=== PATIENT | female | born 1990 | race Caucasian/White ===

== ENCOUNTER 2017-04-16 14:28 | Emergency (ER) | payer SELFPAY ==
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
--- NOTE | 2017-04-16 15:12 | CR ---
EXAMINATION: Left ankle HISTORY: Pain COMPARISON: None TECHNIQUE: 3 views FINDINGS/IMPRESSION: There is an oblique minimally displaced distal fibular fracture noted. Ankle mor tise and talar dome appear grossly intact. Bone mineralization is otherwise normal.
[2017-04-16 16:38] VITALS: BP 133/99
== END 2017-04-16 15:58 | disposition home or self-care (01) ==
LOC: MW.ED 14:28
DX: S82.832A Other fracture of upper and lower end of left fibula, initial encounter for closed fracture (principal); W10.1XXA Fall (on)(from) sidewalk curb, initial encounter
CPT/HCPCS: 29515; 73610-26-LT; 73610-LT; 99282; 99283

== ENCOUNTER 2020-06-06 05:32 | Inpatient (IN) | payer MEDICAID ==
[2020-06-06] MEDS ORDERED: Terbutaline 1 MG/ML SDV SUBCUT PRN (06:36)
[2020-06-06] MEDS ORDERED: Sodium Chloride 0.9% 10 ML SDV IV PRN (06:36)
[2020-06-06] MEDS ORDERED: Butorphanol 1 MG/ML SDV IVPUSH PRN (06:36)
[2020-06-06] MEDS ORDERED: Carboprost Tromethamine 250 MCG/1 ML Amp IM PRN (06:36)
[2020-06-06] MEDS ORDERED: Nalbuphine 10 MG/1 ML Vial IVPUSH PRN (06:36)
[2020-06-06] MEDS ORDERED: Sodium Chloride 0.9% 10 ML Syringe FLUSH PRN (06:36)
[2020-06-06] MEDS ORDERED: Tranexamic Acid 1,000 MG in Sodium Chloride 0.9% 100 ML IV PRN (06:36)
[2020-06-06] MEDS ORDERED: Water For Irrigation,Sterile 1,000 ML Container IRR PRN (06:36)
[2020-06-06] MEDS ORDERED: Methylergonovine 0.2 MG/1 ML Amp IM PRN (06:36)
[2020-06-06] MEDS ORDERED: Misoprostol 25 MCG (1/4 of 100 MCG) Tab VAG PRN ×2 (06:36)
[2020-06-06] MEDS ORDERED: Lidocaine 1% 50 ML MDV INJECT PRN (06:36)
[2020-06-06] MEDS ORDERED: Sodium Chloride 0.9% 2.5 ML Syringe FLUSH PRN (06:36)
[2020-06-06] MEDS ORDERED: Misoprostol 200 MCG Tab PO PRN (06:36)
[2020-06-06] MEDS ORDERED: Oxytocin/0.9 % Sodium Chloride 30 UNIT/500 ML BAG IV SCH ×2 (06:45)
[2020-06-06 08:31] LABS: BLOOD UREA NITROGEN,BUN 9 mg/dL (7.0-18.0); CARBON DIOXIDE,CO2 18.1 mmol/L (21.0-32.0); CHLORIDE,CL 104 mmol/L (98-107); GLUCOSE RANDOM 122 mg/dL (74-106); POTASSIUM,K 3.7 mmol/L (3.5-5.1); SODIUM,NA 137 mmol/L (136-145)
[2020-06-06] MEDS: Lactated Ringers 1,000 ML IV SCH ×2 (13:18→16:50)
--- NOTE | 2020-06-06 16:34 | PCM.PREANE ---
Preanesthetic Assessment - Anesthesia/Transfusion/Family Hx Anesthesia History: Prior Anesthesia Without Reaction Family History of Anesthesia Reaction: No Intubation History: Unknown - Review of Systems General: No Symptoms Pulmonary: No Symptoms Cardiovascular: Other (Hypertension) Gastrointestinal: No Symptoms Neurological: No Symptoms Other: Reports: None - Physical Assessment NPO Status Date: 06/06/20 NPO Status Time: 16:31 (Clear liquids) Height: 1.7 m Weight: 82.1 kg ASA Class: 2 Mental Status: Alert & Oriented x3 Airway Class: Mallampati = 1 Dentition: Reports: Normal Dentition ROM/Head Extension: Full Lungs: Clear to Auscultation Cardiovascular: Regular Rate - Lab Values: Laboratory Last Values WBC 8.06 K/uL (4.0-11.0) 06/06/20 05:55 RBC 3.59 M/uL (4.30-5.90) L 06/06/20 05:55 Hgb 10.9 g/dL (12.0-16.0) L 06/06/20 05:55 Hct 33.1 % (36.0-46.0) L 06/06/20 05:55 MCV 92.2 fL (80.0-98.0) 06/06/20 05:55 MCH 30.4 pg (27.0-32.0) 06/06/20 05:55 MCHC 32.9 g/dL (31.0-37.0) 06/06/20 05:55 RDW Std Deviation 45.7 fl (28.0-62.0) 06/06/20 05:55 RDW Coeff of Wally 14 % (11.0-15.0) 06/06/20 05:55 Plt Count 160 K/uL (150-400) 06/06/20 05:55 MPV 13.80 fL (7.40-12.00) H 06/06/20 05:55 Nucleated RBC % 0.0 /100WBC 06/06/20 05:55 Nucleated RBCs # 0 K/uL 06/06/20 05:55 Sodium 137 mmol/L (136-145) 06/06/20 05:55 Potassium 3.7 mmol/L (3.5-5.1) 06/06/20 05:55 Chloride 104 mmol/L (98-107) 06/06/20 05:55 Carbon Dioxide 18.1 mmol/L (21.0-32.0) L 06/06/20 05:55 BUN 9 mg/dL (7.0-18.0) 06/06/20 05:55 Creatinine 0.7 mg/dL (0.6-1.0) 06/06/20 05:55 Est Cr Clr Drug Dosing 114.28 mL/min 06/06/20 05:55 Estimated GFR (MDRD) > 60.0 ml/min 06/06/20 05:55 Glucose 122 mg/dL (74-106) H 06/06/20 05:55 Uric Acid 4.3 mg/dL (2.6-7.2) 06/06/20 05:55 Calcium 8.3 mg/dL (8.5-10.1) L 06/06/20 05:55 Total Bilirubin 0.6 mg/dL (0.2-1.0) 06/06/20 05:55 AST 15 IU/L (15-37) 06/06/20 05:55 ALT 11 IU/L (14-63) L 06/06/20 05:55 Alkaline Phosphatase 188 U/L (46-116) H 06/06/20 05:55 Total Protein 5.4 g/dL (6.4-8.2) L 06/06/20 05:55 Albumin 2.3 g/dL (3.4-5.0) L 06/06/20 05:55 Globulin 3.1 g/dL (2.6-4.0) 06/06/20 05:55 Albumin/Globulin Ratio 0.7 (0.9-1.6) L 06/06/20 05:55 Ur Random Creatinine 191.5 mg/dL 06/06/20 07:55 U Random Total Protein 99.2 mg/dL (<11.9) H 06/06/20 07:55 Protein/Creatinin Ratio 0.5 06/06/20 07:55 SARS-CoV-2 RNA (CORNELIO) NEGATIVE (NEGATIVE) 06/06/20 06:27 Blood Type A POSITIVE 06/06/20 05:55 Antibody Screen NEGATIVE 06/06/20 05:55 - Allergies Allergies/Adverse Reactions: Allergies Allergy/AdvReac Type Severity Reaction Status Date / Time No Known Allergies Allergy Verified 04/16/17 14:47 - Blood Blood Available: No Product(s) Available: None - Anesthesia Plan Free Text/Narrative:: twins. Progressing well. 5cm. Pain /. Hypertension not treated with meds. Discussed, ? answered, permit signed, wishes to proceed. 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 [No Known Home Meds] 04/16/17 [History] - CURRENT (IN HOUSE) MEDS Current Meds: Current Medications Butorphanol Tartrate (Stadol) 1 mg IVPUSH Q1H PRN PRN Reason: Pain Carboprost Tromethamine (Hemabate Ds) 250 mcg IM ASDIRECTED PRN PRN Reason: Post Hemorrhage Oxytocin/Sodium Chloride (Oxytocin 30 Unit/500 Ml-Ns) 30 unit in 500 mls @ 500 mls/hr IV TITRATE SUSHIL Tranexamic Acid 1,000 mg/ (Sodium Chloride) 110 mls @ 660 mls/hr IV ONETIME PRN PRN Reason: Bleeding Oxytocin/Sodium Chloride (Oxytocin 30 Unit/500 Ml-Ns) 30 unit in 500 mls @ 2 mls/hr IV TITRATE SUSHIL; Protocol Last Titration: 06/06/20 16:15 Dose: 8 munits/min, 8 mls/hr Documented by: Lactated Ringer's (Ringers, Lactated) 1,000 mls @ 150 mls/hr IV ASDIRECTED SUSHIL Last Admin: 06/06/20 13:18 Dose: 50 mls/hr Documented by: Lidocaine HCl (Xylocaine 1%) 50 ml INJECT ONETIME PRN PRN Reason: Laceration repair Methylergonovine Maleate (Methergine) 0.2 mg IM ASDIRECTED PRN PRN Reason: Post Hemorrhage Misoprostol (Cytotec) 200 mcg PO ONETIME PRN PRN Reason: Post Hemorrhage Misoprostol (Cytotec) 25 mcg VAG ONETIME PRN PRN Reason: Cervical Ripening Last Admin: 06/06/20 08:38 Dose: 25 mcg Documented by: Misoprostol (Cytotec) 25 mcg VAG Q4H PRN PRN Reason: Cervical Ripening Nalbuphine HCl (Nubain) 10 mg IVPUSH Q1H PRN PRN Reason: Pain (severe 7-10) Sodium Chloride (Saline Flush) 10 ml FLUSH ASDIRECTED PRN PRN Reason: Keep Vein Open Sodium Chloride (Saline Flush) 2.5 ml FLUSH ASDIRECTED PRN PRN Reason: Keep Vein Open Sodium Chloride (Normal Saline) 10 ml IV ASDIRECTED PRN PRN Reason: IV Use Sterile Water (Sterile Water For Irrigation) 1,000 ml IRR ASDIRECTED PRN PRN Reason: delivery Terbutaline Sulfate (Brethine) 0.25 mg SUBCUT ASDIRECTED PRN PRN Reason: Tacysystole
[2020-06-06] MEDS ORDERED: fentaNYL 100 MCG/2 ML SDV ONE ×2 (16:36→20:08)
[2020-06-06] MEDS ORDERED: Ropivacaine 0.2% PF 2 MG/ML 20 ML SDV ONE (16:36)
[2020-06-06] MEDS ORDERED: Ropivacaine HCl/PF 100 ML ONE (16:36)
[2020-06-06] MEDS ORDERED: ePHEDrine 50 MG/ML SDV ONE (17:05)
[2020-06-06] MEDS ORDERED: Sodium Chloride 0.9% 20 ML ONE (17:05)
[2020-06-06] MEDS ORDERED: Bupivacaine 0.5% 30 ML SDV ONE (20:03)
[2020-06-06] MEDS ORDERED: Misoprostol 200 MCG Tab ONE (22:05)
[2020-06-06] MEDS ORDERED: Benzocaine/Menthol 20%-0.5% Spray 78 GM Cannister TOP PRN (22:41)
[2020-06-06] MEDS ORDERED: oxyCODONE 5 MG Tab PO PRN (22:41)
[2020-06-06] MEDS ORDERED: Ibuprofen 800 MG Tab PO PRN (22:41)
[2020-06-06] MEDS ORDERED: Witch Hazel Medicated Pads 40/Jar TOP PRN (22:41)
[2020-06-06] MEDS ORDERED: Bisacodyl 10 MG Supp RECTAL PRN (22:41)
[2020-06-06] MEDS ORDERED: Lanolin 100% Cream 7 GM Tube TOP PRN (22:41)
--- NOTE | 2020-06-06 22:59 | PCM.DEL ---
L & D Note - General Info Date of Service: 06/06/20 Mother's Due Date: 06/30/20 - Delivery Note Labor: Induced by Oxytocin Cervical Ripening Method: Misoprostil Delivery Outcome: Livebirth Infant Delivery Method: Spontaneous Vaginal Delivery-Twins Presentation: Vertex Nuchal Cord: Reduced (A- nuchal cord x1, reduced after delivery of baby) Anesthesia Type: Epidural Amniotic Fluid Description: Clear (x2) Episiotomy Type: None Laceration: Periurethral (right, hemostatic without repair), Vaginal (left) Suture type: Vicryl Suture size: 2-0 Placenta: Intact, Spontaneous Cord: 3 Vessels (x2) Estimated Blood Loss: 900 (received 1000mcg misoprostol per rectum for lower uterine segment atony) Resuscitation Needed: Yes : Suctioned, Bulb Syringe, Stimulated, Warmed, [place] Used, Warmer Used Score 1 min: 7 (A 7, B 7) Score 5 min: 8 (A 8, B 8) Delivery Comments (Free Text/Narrative):: Induction of labor for suspected monochorionic/diamniotic twin gestation at 37w4d. Blood pressure noted to be elevated, labs with urine protein:Cr 0.5, otherwise normal. Received 1 dose of cytotec and Cook bradley placed for cervical ripening. Started on pitocin. AROM clear fluid of twin A at 5cm dilated. Received epidural for pain control. Progressed to complete cervical dilation. Taken to OR for delivery. Patient began pushing and delivered twin A, live female, Apgars 7/8, weight 2810g, nuchal x1 reduced after delivery of body, delayed cord clamping 30 seconds before being taken to warmer for evaluation. Pelvic examination occurred with simultaneous abdominal US. Head in left lower quadrant, feet in right lower quadrant. With abdominal pressure on head by Dr. Hallman, and intrauterine pressure on feet by myself, converted to vertex presentation. Patient pushed and head became engaged. AROM clear fluid of twin B. Continued pushing and delivered twin B, live female, Apgars 7/8, weight pending, delayed cord clamping 60 seconds. Placenta delivered intact and with 3- vessel cord for each infant. Examination of placenta showed 4 layers to membranes, confirming dichorionic/diamniotic. Lower uterine segment atony with evacuation of clot. 1000mcg misoprostol placed per rectum. Perineal exam revealed right periurethral laceration hemostatic without repair and left vaginal laceration, repaired with 2-0 Vicryl. Fundus firm with minimal bleeding. - General Info Date of Service: 06/06/20 - Patient Data Weight - Most Recent: 82.1 kg Lab Results Last 24 Hours: Laboratory Results - last 24 hr 06/06/20 06/06/20 06/06/20 Range/Units 05:55 05:55 05:55 WBC 8.06 (4.0-11.0) K/uL RBC 3.59 L (4.30-5.90) M/uL Hgb 10.9 L (12.0-16.0) g/dL Hct 33.1 L (36.0-46.0) % MCV 92.2 (80.0-98.0) fL MCH 30.4 (27.0-32.0) pg MCHC 32.9 (31.0-37.0) g/dL RDW Std Deviation 45.7 (28.0-62.0) fl RDW Coeff of Wally 14 (11.0-15.0) % Plt Count 160 (150-400) K/uL MPV 13.80 H (7.40-12.00) fL Nucleated RBC % 0.0 /100WBC Nucleated RBCs # 0 K/uL Sodium 137 (136-145) mmol/L Potassium 3.7 (3.5-5.1) mmol/L Chloride 104 (98-107) mmol/L Carbon Dioxide 18.1 L (21.0-32.0) mmol/L BUN 9 (7.0-18.0) mg/dL Creatinine 0.7 (0.6-1.0) mg/dL Est Cr Clr Drug Dosing 114.28 mL/min Estimated GFR (MDRD) > 60.0 ml/min Glucose 122 H (74-106) mg/dL Uric Acid 4.3 (2.6-7.2) mg/dL Calcium 8.3 L (8.5-10.1) mg/dL Total Bilirubin 0.6 (0.2-1.0) mg/dL AST 15 (15-37) IU/L ALT 11 L (14-63) IU/L Alkaline Phosphatase 188 H (46-116) U/L Total Protein 5.4 L (6.4-8.2) g/dL Albumin 2.3 L (3.4-5.0) g/dL Globulin 3.1 (2.6-4.0) g/dL Albumin/Globulin Ratio 0.7 L (0.9-1.6) Ur Random Creatinine mg/dL U Random Total Protein (<11.9) mg/dL Protein/Creatinin Ratio SARS-CoV-2 RNA (CORNELIO) (NEGATIVE) Blood Type A POSITIVE Antibody Screen NEGATIVE 06/06/20 06/06/20 Range/Units 06:27 07:55 WBC (4.0-11.0) K/uL RBC (4.30-5.90) M/uL Hgb (12.0-16.0) g/dL Hct (36.0-46.0) % MCV (80.0-98.0) fL MCH (27.0-32.0) pg MCHC (31.0-37.0) g/dL RDW Std Deviation (28.0-62.0) fl RDW Coeff of Wally (11.0-15.0) % Plt Count (150-400) K/uL MPV (7.40-12.00) fL Nucleated RBC % /100WBC Nucleated RBCs # K/uL Sodium (136-145) mmol/L Potassium (3.5-5.1) mmol/L Chloride (98-107) mmol/L Carbon Dioxide (21.0-32.0) mmol/L BUN (7.0-18.0) mg/dL Creatinine (0.6-1.0) mg/dL Est Cr Clr Drug Dosing mL/min Estimated GFR (MDRD) ml/min Glucose (74-106) mg/dL Uric Acid (2.6-7.2) mg/dL Calcium (8.5-10.1) mg/dL Total Bilirubin (0.2-1.0) mg/dL AST (15-37) IU/L ALT (14-63) IU/L Alkaline Phosphatase (46-116) U/L Total Protein (6.4-8.2) g/dL Albumin (3.4-5.0) g/dL Globulin (2.6-4.0) g/dL Albumin/Globulin Ratio (0.9-1.6) Ur Random Creatinine 191.5 mg/dL U Random Total Protein 99.2 H (<11.9) mg/dL Protein/Creatinin Ratio 0.5 SARS-CoV-2 RNA (CORNELIO) NEGATIVE (NEGATIVE) Blood Type Antibody Screen Med Orders - Current: Current Medications Acetaminophen (Tylenol Extra Strength) 1,000 mg PO Q6H PRN PRN Reason: Pain Benzocaine/Menthol (Dermoplast Pain Relief 20%-0.5% [place]) 78 gm TOP ASDIRECTED PRN PRN Reason: Perineal Comfort Measure Bisacodyl (Dulcolax) 10 mg RECTAL ONETIME PRN PRN Reason: Constipation Butorphanol Tartrate (Stadol) 1 mg IVPUSH Q1H PRN PRN Reason: Pain Carboprost Tromethamine (Hemabate Ds) 250 mcg IM ASDIRECTED PRN PRN Reason: Post Hemorrhage Docusate Sodium (Colace) 100 mg PO BID PRN PRN Reason: Constipation Emollient Ointment (Lansinoh Hpa) 0 gm TOP ASDIRECTED PRN PRN Reason: Sore Nipples Oxytocin/Sodium Chloride (Oxytocin 30 Unit/500 Ml-Ns) 30 unit in 500 mls @ 500 mls/hr IV TITRATE SUSHIL Tranexamic Acid 1,000 mg/ (Sodium Chloride) 110 mls @ 660 mls/hr IV ONETIME PRN PRN Reason: Bleeding Oxytocin/Sodium Chloride (Oxytocin 30 Unit/500 Ml-Ns) 30 unit in 500 mls @ 2 mls/hr IV TITRATE SUSHIL; Protocol Last Titration: 06/06/20 19:15 Dose: 0 munits/min, 0 mls/hr Documented by: Lactated Ringer's (Ringers, Lactated) 1,000 mls @ 150 mls/hr IV ASDIRECTED SUSHIL Last Admin: 06/06/20 16:50 Dose: 999 mls/hr Documented by: Ibuprofen (Motrin) 800 mg PO Q8H PRN PRN Reason: Pain Lidocaine HCl (Xylocaine 1%) 50 ml INJECT ONETIME PRN PRN Reason: Laceration repair Methylergonovine Maleate (Methergine) 0.2 mg IM ASDIRECTED PRN PRN Reason: Post Hemorrhage Misoprostol (Cytotec) 200 mcg PO ONETIME PRN PRN Reason: Post Hemorrhage Misoprostol (Cytotec) 25 mcg VAG ONETIME PRN PRN Reason: Cervical Ripening Last Admin: 06/06/20 08:38 Dose: 25 mcg Documented by: Misoprostol (Cytotec) 25 mcg VAG Q4H PRN PRN Reason: Cervical Ripening Nalbuphine HCl (Nubain) 10 mg IVPUSH Q1H PRN PRN Reason: Pain (severe 7-10) Oxycodone HCl (Oxycodone) 5 mg PO Q2H PRN PRN Reason: Pain Sodium Chloride (Saline Flush) 10 ml FLUSH ASDIRECTED PRN PRN Reason: Keep Vein Open Sodium Chloride (Saline Flush) 2.5 ml FLUSH ASDIRECTED PRN PRN Reason: Keep Vein Open Sodium Chloride (Normal Saline) 10 ml IV ASDIRECTED PRN PRN Reason: IV Use Sterile Water (Sterile Water For Irrigation) 1,000 ml IRR ASDIRECTED PRN PRN Reason: delivery Terbutaline Sulfate (Brethine) 0.25 mg SUBCUT ASDIRECTED PRN PRN Reason: Tacysystole Witch Edie (Tucks) 1 pad TOP ASDIRECTED PRN PRN Reason: comfort care Discontinued Medications Bupivacaine HCl (Marcaine 0.5%) Confirm Administered Dose 30 ml .ROUTE .STK-MED ONE Stop: 06/06/20 20:04 Ephedrine Sulfate (Ephedrine Sulfate) Confirm Administered Dose 100 mg .ROUTE .STK-MED ONE Stop: 06/06/20 17:06 Fentanyl (Sublimaze) Confirm Administered Dose 100 mcg .ROUTE .STK-MED ONE Stop: 06/06/20 16:37 Fentanyl (Sublimaze) Confirm Administered Dose 100 mcg .ROUTE .STK-MED ONE Stop: 06/06/20 20:09 Ropivacaine (Naropin 0.2%) Confirm Administered Dose 100 mls @ as directed .ROUTE .STK-MED ONE Stop: 06/06/20 16:37 Sodium Chloride (Normal Saline) Confirm Administered Dose 20 mls @ as directed .ROUTE .STK-MED ONE Stop: 06/06/20 17:06 Misoprostol (Cytotec) Confirm Administered Dose 800 mcg .ROUTE .STK-MED ONE Stop: 06/06/20 22:06 Ropivacaine (Naropin 0.2%) Confirm Administered Dose 20 ml .ROUTE .STK-MED ONE Stop: 06/06/20 16:37 - Problem List & Annotations (1) Twin delivered vaginally SNOMED Code(s): 656749930 Code(s): O30.009 - TWIN , UNSP NUM PLCNTA & AMNIO SACS, UNSP TRIMESTER Status: Acute Current Visit: Yes (2) Preeclampsia SNOMED Code(s): 156206433 Code(s): O14.90 - UNSPECIFIED PRE-ECLAMPSIA, UNSPECIFIED TRIMESTER Status: Acute Current Visit: Yes Qualifiers: Trimester: third trimester Qualified Code(s): O14.93 - Unspecified pre- eclampsia, third trimester - Problem List Review Problem List Initiated/Reviewed/Updated: Yes - My Orders Last 24 Hours: My Active Orders 06/06/20 05:55 RPR (SYPHILIS SERO) W/ RFLX [REF] Routine 06/06/20 06:36 Patient Status [ADT] Routine Bedrest Bathroom Privileges [RC] ASDIRECTED Communication Order [RC] ASDIRECTED Communication Order [RC] ASDIRECTED Communication Order [RC] ASDIRECTED Heart Tones [RC] CONTINUOUS Non Stress Test [RC] PER UNIT ROUTINE May Shower [RC] ASDIRECTED Notify Provider [RC] PRN Notify Provider [RC] PRN Notify Provider [RC] PRN Notify Provider [RC] STAT Oxygen Therapy [RC] ASDIRECTED Up ad Gabriela [RC] ASDIRECTED Vaginal Exam [RC] PRN Vaginal Exam [RC] PRN Vital Signs [RC] PER UNIT ROUTINE Butorphanol [Stadol] 1 mg IVPUSH Q1H PRN Carboprost Tromethamine [Hemabate DS] 250 mcg IM ASDIRECTED PRN Lidocaine 1% [Xylocaine 1%] 50 ml INJECT ONETIME PRN Methylergonovine [Methergine] 0.2 mg IM ASDIRECTED PRN Nalbuphine [Nubain] 10 mg IVPUSH Q1H PRN Sodium Chloride 0.9% [Normal Saline] 10 ml IV ASDIRECTED PRN Sodium Chloride 0.9% [Saline Flush] 10 ml FLUSH ASDIRECTED PRN Sodium Chloride 0.9% [Saline Flush] 2.5 ml FLUSH ASDIRECTED PRN Terbutaline [Brethine] 0.25 mg SUBCUT ASDIRECTED PRN Tranexamic Acid [Cyklokapron] 1,000 mg Sodium Chloride 0.9% [Normal Saline] 100 ml IV ONETIME Water For Irrigation,Sterile [Sterile Water for Irrigation] 1,000 ml IRR ASDIRECTED PRN miSOPROStoL [Cytotec] 200 mcg PO ONETIME PRN miSOPROStoL [Cytotec] 25 mcg VAG ONETIME PRN miSOPROStoL [Cytotec] 25 mcg VAG Q4H PRN Scalp Electrode [WOMSER] Per Unit Routine Peripheral IV Insertion Adult [OM.PC] Routine Resuscitation Status Routine 06/06/20 06:45 Lactated Ringers [Ringers, Lactated] 1,000 ml IV ASDIRECTED Oxytocin/0.9 % Sodium Chloride [Oxytocin 30 Unit/500 ML-NS] 30 unit in 500 ml IV TITRATE Oxytocin/0.9 % Sodium Chloride [Oxytocin 30 Unit/500 ML-NS] 30 unit in 500 ml IV TITRATE Medication Administration Instruction [OM.PC] Q3H 06/06/20 Dinner Regular Diet [DIET] 06/06/20 22:41 Patient Status [ADT] Routine May Shower [RC] ASDIRECTED Notify Provider Vital Signs [RC] ASDIRECTED Up ad Gabriela [RC] ASDIRECTED Vital Signs [RC] PER UNIT ROUTINE Acetaminophen [Tylenol Extra Strength] 1,000 mg PO Q6H PRN Benzocaine/Menthol [Dermoplast Pain Relief 20%-0.5% [place]] 78 gm TOP ASDIRECTED PRN Docusate Sodium [Colace] 100 mg PO BID PRN Ibuprofen [Motrin] 800 mg PO Q8H PRN Lanolin [Lansinoh HPA] See Dose Instructions TOP ASDIRECTED PRN bisacodyL [Dulcolax] 10 mg RECTAL ONETIME PRN oxyCODONE 5 mg PO Q2H PRN witch Edie [Tucks] 1 pad TOP ASDIRECTED PRN Assess Lochia [WOMSER] Per Unit Routine Assess Uterine Involution [WOMSER] Per Unit Routine Breast Pump [WOMSER] Per Unit Routine Peripheral IV Discontinue [OM.PC] Routine 06/06/20 22:42 Cooling Warming Measures [RC] ASDIRECTED Ice Therapy [OM.PC] Per Unit Routine Perineal Care [OM.PC] Per Unit Routine Sitz Bath [OM.PC] Per Unit Routine 06/07/20 05:11 HEMOGLOBIN/HEMATOCRIT,HH [HEME] Timed - Assessment Assessment:: 30yo s/p of twin gestation at 37w4d - Plan Plan:: Admit to unit. Monitor blood pressure and for severe features of preeclampsia. Patient planning to breastfeed.
--- NOTE | 2020-06-07 00:33 | OR ---
SURGEON: Evi Panda MD DATE OF PROCEDURE: 06/06/2020 PREOPERATIVE DIAGNOSES: 1. A 30-year-old 1, para 0, at 37 weeks and 4 days' gestation. 2. Induction of labor. 3. Suspected monochorionic/diamniotic twin gestation. 4. Preeclampsia. 5. Group B streptococcus negative. POSTOPERATIVE DIAGNOSES: 1. A 30-year-old 1 , para 1-0-0-2, status post spontaneous vaginal delivery. 2. Diamniotic/dichorionic twin gestation. 3. Preeclampsia. PROCEDURE: Spontaneous vaginal delivery x2. PRIMARY SURGEON: Evi Panda MD. BEE TENDER: Mimi Hallman M.D. ANESTHESIA: Epidural. ESTIMATED BLOOD LOSS: 900 mL. FINDINGS: Twin A; live female in cephalic presentation. score 7 and 8 at one and five minutes respectively. Weight 2810 g. Nuchal cord x1 was reduced after delivery of body. Twin B; live female infant in cephalic presentation. score 7 and 8 at one and five minutes respectively. Weight 2580 g. Placenta intact and with 3-vessel cord for both twins with 4 layers to the dividing membrane, confirming diamniotic/dichorionic twin gestation. Perineum with left vaginal and right periurethral lacerations. INDICATIONS: This is a 30-year-old, G1, P0, who presented at 37 weeks and 4 days' gestation for scheduled induction of labor due to twin gestation. During the course, chorionicity of the twins was unable to be accurately determined, and per Maternal Medicine recommendations it was to be treated as monochorionic/diamniotic twin gestation with monitoring for twin-twin transfusion syndrome. This was reassuring during care. She presented for an induction of labor. Elevated blood pressures were noted. Preeclampsia labs were obtained, and the urine protein-creatinine ratio was 0.5. The patient denied any symptoms of preeclampsia throughout her labor course. She was given 1 dose of intravaginal Cytotec and a Graf balloon was placed. Pitocin was started for induction of labor. The Graf was removed at approximately 4 cm dilated. She underwent artificial rupture of membranes with clear fluid noted with twin A at 5 cm dilated. The patient received an epidural for pain control. She progressed to complete cervical dilation. She was transferred to the operating room and Respiratory Therapy, Anesthesia, Mainframe Systems Administrator, and an rocket propellant plant supervisor were called to the room. Dr. Hallman was called for backup. DESCRIPTION OF PROCEDURE: The patient began pushing and delivered twin A in cephalic presentation. A nuchal cord x1 was reduced after delivery of the body. The was placed on the maternal abdomen. After approximately 30 seconds, the cord was clamped and cut. The infant was taken to the warmer for evaluation by the Mainframe Systems Administrator. A pelvic examination with simultaneous abdominal ultrasound was performed. The head was noted in the maternal left lower quadrant with the feet in the right lower quadrant. With abdominal pressure on the head by Dr. Hallman and intrauterine pressure on the feet by myself, the fetus converted to vertex presentation. The patient pushed and the head became engaged. Artificial rupture of membranes occurred with clear fluid noted of twin B. The patient continued pushing and delivered a live female infant. The infant was placed on the maternal abdomen. After approximately 60 seconds, the cord was clamped and cut. The placenta then delivered intact with 3- vessel cord for each . Examination of the placenta showed 4 dividing layers of the membranes confirming dichorionic-diamniotic twin gestation. Lower uterine segment atony was noted with evacuation of clot. Fundal massage and bimanual exam were performed to obtain lower uterine segment tone. 1000 mcg of misoprostol was placed per rectum. Perineal exam showed a right periurethral and a left vaginal laceration. The periurethral laceration was hemostatic without repair, and the vaginal laceration repaired to anatomy, and hemostasis with 2-0 Vicryl. Fundus was firm with scant bleeding. The patient and infants tolerated the delivery well. Twin A was taken to the nursery for respiratory support, however, was breathing spontaneously and did not require oxygen supplementation. Twin B remained in the room with the mother. CHASE / LORNA /[id number] GUILHERME
[2020-06-07] MEDS: Docusate Sodium 100 MG Cap PO PRN (00:36)
[2020-06-07] MEDS: Acetaminophen 500 MG Tab PO PRN (01:29)
--- NOTE | 2020-06-07 06:45 | PCM.PNPP ---
- General Info Date of Service: 06/07/20 Subjective Update: Patient doing well. Had fever overnight, has not recurred. VS normal. Denies preeclampsia symptoms. Functional Status: Reports: Pain Controlled, Tolerating Diet, Ambulating, Urinating - Review of Systems General: Reports: No Symptoms HEENT: Reports: No Symptoms Pulmonary: Reports: No Symptoms Cardiovascular: Reports: No Symptoms Gastrointestinal: Reports: No Symptoms Genitourinary: Reports: No Symptoms Musculoskeletal: Reports: No Symptoms Skin: Reports: No Symptoms Neurological: Reports: No Symptoms Psychiatric: Reports: No Symptoms - Patient Data Vital Signs - Most Recent: Last Vital Signs Temp 36.1 C 06/07/20 04:00 Pulse 93 06/07/20 04:00 Resp 15 06/07/20 04:00 BP 109/71 06/07/20 04:00 Pulse Ox 97 06/07/20 04:00 Weight - Most Recent: 82.1 kg I&O - Last 24 Hours: Intake & Output 06/06/20 06/06/20 06/07/20 14:59 22:59 06:59 Output Total 150 Balance -150 Lab Results - Last 24 Hours: Laboratory Results - last 24 hr 06/06/20 06/06/20 06/06/20 Range/Units 05:55 05:55 05:55 WBC 8.06 (4.0-11.0) K/uL RBC 3.59 L (4.30-5.90) M/uL Hgb 10.9 L (12.0-16.0) g/dL Hct 33.1 L (36.0-46.0) % MCV 92.2 (80.0-98.0) fL MCH 30.4 (27.0-32.0) pg MCHC 32.9 (31.0-37.0) g/dL RDW Std Deviation 45.7 (28.0-62.0) fl RDW Coeff of Wally 14 (11.0-15.0) % Plt Count 160 (150-400) K/uL MPV 13.80 H (7.40-12.00) fL Nucleated RBC % 0.0 /100WBC Nucleated RBCs # 0 K/uL Sodium 137 (136-145) mmol/L Potassium 3.7 (3.5-5.1) mmol/L Chloride 104 (98-107) mmol/L Carbon Dioxide 18.1 L (21.0-32.0) mmol/L BUN 9 (7.0-18.0) mg/dL Creatinine 0.7 (0.6-1.0) mg/dL Est Cr Clr Drug Dosing 114.28 mL/min Estimated GFR (MDRD) > 60.0 ml/min Glucose 122 H (74-106) mg/dL Uric Acid 4.3 (2.6-7.2) mg/dL Calcium 8.3 L (8.5-10.1) mg/dL Total Bilirubin 0.6 (0.2-1.0) mg/dL AST 15 (15-37) IU/L ALT 11 L (14-63) IU/L Alkaline Phosphatase 188 H (46-116) U/L Total Protein 5.4 L (6.4-8.2) g/dL Albumin 2.3 L (3.4-5.0) g/dL Globulin 3.1 (2.6-4.0) g/dL Albumin/Globulin Ratio 0.7 L (0.9-1.6) Ur Random Creatinine mg/dL U Random Total Protein (<11.9) mg/dL Protein/Creatinin Ratio SARS-CoV-2 RNA (CORNELIO) (NEGATIVE) Blood Type A POSITIVE Antibody Screen NEGATIVE 06/06/20 06/06/20 06/07/20 Range/Units 06:27 07:55 05:34 WBC (4.0-11.0) K/uL RBC (4.30-5.90) M/uL Hgb 9.1 L (12.0-16.0) g/dL Hct 27.5 L (36.0-46.0) % MCV (80.0-98.0) fL MCH (27.0-32.0) pg MCHC (31.0-37.0) g/dL RDW Std Deviation (28.0-62.0) fl RDW Coeff of Wally (11.0-15.0) % Plt Count (150-400) K/uL MPV (7.40-12.00) fL Nucleated RBC % /100WBC Nucleated RBCs # K/uL Sodium (136-145) mmol/L Potassium (3.5-5.1) mmol/L Chloride (98-107) mmol/L Carbon Dioxide (21.0-32.0) mmol/L BUN (7.0-18.0) mg/dL Creatinine (0.6-1.0) mg/dL Est Cr Clr Drug Dosing mL/min Estimated GFR (MDRD) ml/min Glucose (74-106) mg/dL Uric Acid (2.6-7.2) mg/dL Calcium (8.5-10.1) mg/dL Total Bilirubin (0.2-1.0) mg/dL AST (15-37) IU/L ALT (14-63) IU/L Alkaline Phosphatase (46-116) U/L Total Protein (6.4-8.2) g/dL Albumin (3.4-5.0) g/dL Globulin (2.6-4.0) g/dL Albumin/Globulin Ratio (0.9-1.6) Ur Random Creatinine 191.5 mg/dL U Random Total Protein 99.2 H (<11.9) mg/dL Protein/Creatinin Ratio 0.5 SARS-CoV-2 RNA (CORNELIO) NEGATIVE (NEGATIVE) Blood Type Antibody Screen Med Orders - Current: Current Medications Acetaminophen (Tylenol Extra Strength) 1,000 mg PO Q6H PRN PRN Reason: Pain Last Admin: 06/07/20 01:29 Dose: 1,000 mg Documented by: Benzocaine/Menthol (Dermoplast Pain Relief 20%-0.5% [place]) 78 gm TOP ASDIRECTED PRN PRN Reason: Perineal Comfort Measure Last Admin: 06/07/20 00:36 Dose: 1 canister Documented by: Bisacodyl (Dulcolax) 10 mg RECTAL ONETIME PRN PRN Reason: Constipation Butorphanol Tartrate (Stadol) 1 mg IVPUSH Q1H PRN PRN Reason: Pain Carboprost Tromethamine (Hemabate Ds) 250 mcg IM ASDIRECTED PRN PRN Reason: Post Hemorrhage Docusate Sodium (Colace) 100 mg PO BID PRN PRN Reason: Constipation Last Admin: 06/07/20 00:36 Dose: 100 mg Documented by: Emollient Ointment (Lansinoh Hpa) 0 gm TOP ASDIRECTED PRN PRN Reason: Sore Nipples Oxytocin/Sodium Chloride (Oxytocin 30 Unit/500 Ml-Ns) 30 unit in 500 mls @ 500 mls/hr IV TITRATE [facility] Last Admin: 06/06/20 23:14 Dose: 250 mls/hr Documented by: Tranexamic Acid 1,000 mg/ (Sodium Chloride) 110 mls @ 660 mls/hr IV ONETIME PRN PRN Reason: Bleeding Oxytocin/Sodium Chloride (Oxytocin 30 Unit/500 Ml-Ns) 30 unit in 500 mls @ 2 mls/hr IV TITRATE [facility]; Protocol Last Titration: 06/06/20 21:57 Dose: 500 munits/min, 500 mls/hr Documented by: Lactated Ringer's (Ringers, Lactated) 1,000 mls @ 150 mls/hr IV ASDIRECTED SUSHIL Last Admin: 06/06/20 16:50 Dose: 999 mls/hr Documented by: Ibuprofen (Motrin) 800 mg PO Q8H PRN PRN Reason: Pain Lidocaine HCl (Xylocaine 1%) 50 ml INJECT ONETIME PRN PRN Reason: Laceration repair Methylergonovine Maleate (Methergine) 0.2 mg IM ASDIRECTED PRN PRN Reason: Post Hemorrhage Misoprostol (Cytotec) 200 mcg PO ONETIME PRN PRN Reason: Post Hemorrhage Last Admin: 06/06/20 22:07 Dose: 200 mcg Documented by: Misoprostol (Cytotec) 25 mcg VAG ONETIME PRN PRN Reason: Cervical Ripening Last Admin: 06/06/20 08:38 Dose: 25 mcg Documented by: Misoprostol (Cytotec) 25 mcg VAG Q4H PRN PRN Reason: Cervical Ripening Nalbuphine HCl (Nubain) 10 mg IVPUSH Q1H PRN PRN Reason: Pain (severe 7-10) Oxycodone HCl (Oxycodone) 5 mg PO Q2H PRN PRN Reason: Pain Sodium Chloride (Saline Flush) 10 ml FLUSH ASDIRECTED PRN PRN Reason: Keep Vein Open Sodium Chloride (Saline Flush) 2.5 ml FLUSH ASDIRECTED PRN PRN Reason: Keep Vein Open Sodium Chloride (Normal Saline) 10 ml IV ASDIRECTED PRN PRN Reason: IV Use Sterile Water (Sterile Water For Irrigation) 1,000 ml IRR ASDIRECTED PRN PRN Reason: delivery Terbutaline Sulfate (Brethine) 0.25 mg SUBCUT ASDIRECTED PRN PRN Reason: Tacysystole Vera [place]rizar[place] (Tucks) 1 pad TOP ASDIRECTED PRN PRN Reason: comfort care Last Admin: 06/07/20 00:35 Dose: 1 tub Documented by: Discontinued Medications Bupivacaine HCl (Marcaine 0.5%) Confirm Administered Dose 30 ml .ROUTE .STK-MED ONE Stop: 06/06/20 20:04 Ephedrine Sulfate (Ephedrine Sulfate) Confirm Administered Dose 100 mg .ROUTE .STK-MED ONE Stop: 06/06/20 17:06 Fentanyl (Sublimaze) Confirm Administered Dose 100 mcg .ROUTE .STK-MED ONE Stop: 06/06/20 16:37 Fentanyl (Sublimaze) Confirm Administered Dose 100 mcg .ROUTE .STK-MED ONE Stop: 06/06/20 20:09 Ropivacaine (Naropin 0.2%) Confirm Administered Dose 100 mls @ as directed .ROUTE .STK-MED ONE Stop: 06/06/20 16:37 Sodium Chloride (Normal Saline) Confirm Administered Dose 20 mls @ as directed .ROUTE .STK-MED ONE Stop: 06/06/20 17:06 Misoprostol (Cytotec) Confirm Administered Dose 800 mcg .ROUTE .STK-MED ONE Stop: 06/06/20 22:06 Last Admin: 06/06/20 22:07 Dose: 800 mcg Documented by: Ropivacaine (Naropin 0.2%) Confirm Administered Dose 20 ml .ROUTE .STK-MED ONE Stop: 06/06/20 16:37 - Interaction Infant Disposition, : to Nursery Infant Feeding: Bottle Fed Support Person: Significant Other - Recovery Exam Fundal Tone: Firm Fundal Level: 1 Fingerbreadths Above Umbilicus Fundal Placement: Midline Lochia Amount: Small Lochia Color: Rubra/Red Bladder Status: Voiding Urinary Elimination: Voided - Exam General: Alert, Oriented Neck: Supple Lungs: Normal Respiratory Effort GI/Abdominal Exam: Soft, Non-Tender Extremities: Non-Tender Skin: Warm, Dry, Intact Neurological: No New Focal Deficit Psy/Mental Status: Alert, Normal Affect, Normal Mood - Problem List & Annotations (1) Twin delivered vaginally SNOMED Code(s): 916088243 Code(s): O30.009 - TWIN , UNSP NUM PLCNTA & AMNIO SACS, UNSP TRIMESTER Status: Acute Current Visit: Yes (2) Preeclampsia SNOMED Code(s): 712285371 Code(s): O14.90 - UNSPECIFIED PRE-ECLAMPSIA, UNSPECIFIED TRIMESTER Status: Acute Current Visit: Yes Qualifiers: Trimester: third trimester Qualified Code(s): O14.93 - Unspecified pre- eclampsia, third trimester - Problem List Review Problem List Initiated/Reviewed/Updated: Yes - My Orders Last 24 Hours: My Active Orders 06/06/20 05:55 RPR (SYPHILIS SERO) W/ RFLX [REF] Routine 06/06/20 06:36 Patient Status [ADT] Routine May Shower [RC] ASDIRECTED Up ad Gabriela [RC] ASDIRECTED Vital Signs [RC] PER UNIT ROUTINE Butorphanol [Stadol] 1 mg IVPUSH Q1H PRN Carboprost Tromethamine [Hemabate DS] 250 mcg IM ASDIRECTED PRN Lidocaine 1% [Xylocaine 1%] 50 ml INJECT ONETIME PRN Methylergonovine [Methergine] 0.2 mg IM ASDIRECTED PRN Nalbuphine [Nubain] 10 mg IVPUSH Q1H PRN Sodium Chloride 0.9% [Normal Saline] 10 ml IV ASDIRECTED PRN Sodium Chloride 0.9% [Saline Flush] 10 ml FLUSH ASDIRECTED PRN Sodium Chloride 0.9% [Saline Flush] 2.5 ml FLUSH ASDIRECTED PRN Terbutaline [Brethine] 0.25 mg SUBCUT ASDIRECTED PRN Tranexamic Acid [Cyklokapron] 1,000 mg Sodium Chloride 0.9% [Normal Saline] 100 ml IV ONETIME Water For Irrigation,Sterile [Sterile Water for Irrigation] 1,000 ml IRR ASDIRECTED PRN miSOPROStoL [Cytotec] 200 mcg PO ONETIME PRN miSOPROStoL [Cytotec] 25 mcg VAG ONETIME PRN miSOPROStoL [Cytotec] 25 mcg VAG Q4H PRN Scalp Electrode [WOMSER] Per Unit Routine Peripheral IV Insertion Adult [OM.PC] Routine Resuscitation Status Routine 06/06/20 06:45 Lactated Ringers [Ringers, Lactated] 1,000 ml IV ASDIRECTED Oxytocin/0.9 % Sodium Chloride [Oxytocin 30 Unit/500 ML-NS] 30 unit in 500 ml IV TITRATE Oxytocin/0.9 % Sodium Chloride [Oxytocin 30 Unit/500 ML-NS] 30 unit in 500 ml IV TITRATE Medication Administration Instruction [OM.PC] Q3H 06/06/20 Dinner Regular Diet [DIET] 06/06/20 22:41 Patient Status [ADT] Routine May Shower [RC] ASDIRECTED Notify Provider Vital Signs [RC] ASDIRECTED Up ad Gabriela [RC] ASDIRECTED Vital Signs [RC] PER UNIT ROUTINE Acetaminophen [Tylenol Extra Strength] 1,000 mg PO Q6H PRN Benzocaine/Menthol [Dermoplast Pain Relief 20%-0.5% [place]] 78 gm TOP ASDIRECTED PRN Docusate Sodium [Colace] 100 mg PO BID PRN Ibuprofen [Motrin] 800 mg PO Q8H PRN Lanolin [Lansinoh HPA] See Dose Instructions TOP ASDIRECTED PRN bisacodyL [Dulcolax] 10 mg RECTAL ONETIME PRN oxyCODONE 5 mg PO Q2H PRN witch [place]ette [Tucks] 1 pad TOP ASDIRECTED PRN Assess Lochia [WOMSER] Per Unit Routine Assess Uterine Involution [WOMSER] Per Unit Routine Breast Pump [WOMSER] Per Unit Routine Peripheral IV Discontinue [OM.PC] Routine 06/06/20 22:42 Ice Therapy [OM.PC] Per Unit Routine Perineal Care [OM.PC] Per Unit Routine Sitz Bath [OM.PC] Per Unit Routine - Assessment Assessment:: 30yo s/p of twin gestation at 37w4d, PPD#1 - Plan Plan:: 1. Encouraged to breastfeed today. 2. Continue to monitor temperature, will treat with antibiotics if fever recurs. 3. Continue to monitor BP, have been normal since delivery. Patient remains asymptomatic. 4. Plan to discharge home tomorrow.
--- NOTE | 2020-06-07 07:24 | PCM48HPAN ---
Post Anesthesia Note - EVALUATION WITHIN 48HRS OF ANESTHETIC Vital Signs in Normal Range: Yes Patient Participated in Evaluation: Yes Respiratory Function Stable: Yes Airway Patent: Yes Cardiovascular Function Stable: Yes Hydration Status Stable: Yes Pain Control Satisfactory: Yes Nausea and Vomiting Control Satisfactory: Yes Mental Status Recovered: Yes Vital Signs: Last Vital Signs Temp 36.1 C 06/07/20 04:00 Pulse 93 06/07/20 04:00 Resp 15 06/07/20 04:00 BP 109/71 06/07/20 04:00 Pulse Ox 97 06/07/20 04:00 - COMMENTS/OBSERVATIONS Free Text/Narrative:: Doing well. No problems post.
--- NOTE | 2020-06-08 08:13 | PCM.PNPP ---
- General Info Date of Service: 06/08/20 Subjective Update: Patient resting comfortably in bed, no new concerns overnight. Ambulating and voiding without difficulty. Tolerating regular diet. Denies preeclampsia symptoms. No fever overnight. Reports one of her infants has an IV due to low blood sugars and may not be eligible for discharge today. - General Info Date of Service: 06/08/20 - Patient Data Vital Signs - Most Recent: Last Vital Signs Temp 97.5 F 06/08/20 05:40 Pulse 75 06/08/20 05:40 Resp 14 06/08/20 05:40 BP 123/84 06/08/20 05:40 Pulse Ox 95 06/08/20 05:40 Weight - Most Recent: 181 lb Med Orders - Current: Current Medications Acetaminophen (Tylenol Extra Strength) 1,000 mg PO Q6H PRN PRN Reason: Pain Last Admin: 06/07/20 01:29 Dose: 1,000 mg Documented by: Benzocaine/Menthol (Dermoplast Pain Relief 20%-0.5% [place]) 78 gm TOP ASDIRECTED PRN PRN Reason: Perineal Comfort Measure Last Admin: 06/07/20 00:36 Dose: 1 canister Documented by: Bisacodyl (Dulcolax) 10 mg RECTAL ONETIME PRN PRN Reason: Constipation Butorphanol Tartrate (Stadol) 1 mg IVPUSH Q1H PRN PRN Reason: Pain Carboprost Tromethamine (Hemabate Ds) 250 mcg IM ASDIRECTED PRN PRN Reason: Post Hemorrhage Docusate Sodium (Colace) 100 mg PO BID PRN PRN Reason: Constipation Last Admin: 06/07/20 00:36 Dose: 100 mg Documented by: Emollient Ointment (Lansinoh Hpa) 0 gm TOP ASDIRECTED PRN PRN Reason: Sore Nipples Oxytocin/Sodium Chloride (Oxytocin 30 Unit/500 Ml-Ns) 30 unit in 500 mls @ 500 mls/hr IV TITRATE SUSHIL Last Admin: 06/06/20 23:14 Dose: 250 mls/hr Documented by: Tranexamic Acid 1,000 mg/ (Sodium Chloride) 110 mls @ 660 mls/hr IV ONETIME PRN PRN Reason: Bleeding Oxytocin/Sodium Chloride (Oxytocin 30 Unit/500 Ml-Ns) 30 unit in 500 mls @ 2 mls/hr IV TITRATE SUSHIL; Protocol Last Titration: 06/06/20 21:57 Dose: 500 munits/min, 500 mls/hr Documented by: Lactated Ringer's (Ringers, Lactated) 1,000 mls @ 150 mls/hr IV ASDIRECTED SUSHIL Last Admin: 06/06/20 16:50 Dose: 999 mls/hr Documented by: Ibuprofen (Motrin) 800 mg PO Q8H PRN PRN Reason: Pain Lidocaine HCl (Xylocaine 1%) 50 ml INJECT ONETIME PRN PRN Reason: Laceration repair Methylergonovine Maleate (Methergine) 0.2 mg IM ASDIRECTED PRN PRN Reason: Post Hemorrhage Misoprostol (Cytotec) 200 mcg PO ONETIME PRN PRN Reason: Post Hemorrhage Last Admin: 06/06/20 22:07 Dose: 200 mcg Documented by: Misoprostol (Cytotec) 25 mcg VAG ONETIME PRN PRN Reason: Cervical Ripening Last Admin: 06/06/20 08:38 Dose: 25 mcg Documented by: Misoprostol (Cytotec) 25 mcg VAG Q4H PRN PRN Reason: Cervical Ripening Nalbuphine HCl (Nubain) 10 mg IVPUSH Q1H PRN PRN Reason: Pain (severe 7-10) Oxycodone HCl (Oxycodone) 5 mg PO Q2H PRN PRN Reason: Pain Sodium Chloride (Saline Flush) 10 ml FLUSH ASDIRECTED PRN PRN Reason: Keep Vein Open Sodium Chloride (Saline Flush) 2.5 ml FLUSH ASDIRECTED PRN PRN Reason: Keep Vein Open Sodium Chloride (Normal Saline) 10 ml IV ASDIRECTED PRN PRN Reason: IV Use Sterile Water (Sterile Water For Irrigation) 1,000 ml IRR ASDIRECTED PRN PRN Reason: delivery Terbutaline Sulfate (Brethine) 0.25 mg SUBCUT ASDIRECTED PRN PRN Reason: Tacysystole [place] (Tucks) 1 pad TOP ASDIRECTED PRN PRN Reason: comfort care Last Admin: 06/07/20 00:35 Dose: 1 tub Documented by: Discontinued Medications Bupivacaine HCl (Marcaine 0.5%) Confirm Administered Dose 30 ml .ROUTE .STK-MED ONE Stop: 06/06/20 20:04 Ephedrine Sulfate (Ephedrine Sulfate) Confirm Administered Dose 100 mg .ROUTE .STK-MED ONE Stop: 06/06/20 17:06 Fentanyl (Sublimaze) Confirm Administered Dose 100 mcg .ROUTE .STK-MED ONE Stop: 06/06/20 16:37 Fentanyl (Sublimaze) Confirm Administered Dose 100 mcg .ROUTE .STK-MED ONE Stop: 06/06/20 20:09 Ropivacaine (Naropin 0.2%) Confirm Administered Dose 100 mls @ as directed .ROUTE .STK-MED ONE Stop: 06/06/20 16:37 Sodium Chloride (Normal Saline) Confirm Administered Dose 20 mls @ as directed .ROUTE .STK-MED ONE Stop: 06/06/20 17:06 Misoprostol (Cytotec) Confirm Administered Dose 800 mcg .ROUTE .STK-MED ONE Stop: 06/06/20 22:06 Last Admin: 06/06/20 22:07 Dose: 800 mcg Documented by: Ropivacaine (Naropin 0.2%) Confirm Administered Dose 20 ml .ROUTE .STK-MED ONE Stop: 06/06/20 16:37 - Interaction Infant Disposition, : [place] in Room with Family Infant Feeding: Bottle Fed Infant Support Person: Significant Other - Recovery Exam Fundal Tone: Firm Fundal Level: 1 Fingerbreadths Above Umbilicus Fundal Placement: Midline Lochia Amount: Small Lochia Color: Rubra/Red Perineum Description: Intact, Minimal Bruising/Swelling Episiotomy/Laceration: None Bladder Status: Voiding Urinary Elimination: Voided - Exam General: Alert, Oriented Lungs: Normal Respiratory Effort Cardiovascular: Regular Rate GI/Abdominal Exam: Soft, Non-Tender Extremities: Normal Inspection, Pedal Edema (trace) Skin: Warm, Dry, Intact Neurological: No New Focal Deficit Psy/Mental Status: Alert, Normal Affect - Problem List Review Problem List Initiated/Reviewed/Updated: Yes - Assessment Assessment:: 30yo s/p of twin gestation at 37w4d, PPD#2 - Plan Plan:: 1. Encouraged to breastfeed today. 2. Continue to monitor temperature, will treat with antibiotics if fever recurs. 3. Continue to monitor BP and symptoms. BP 130/92 this AM. Patient remains asymptomatic. 4. Plan to discharge home today or tomorrow pending maternal/ status.
[2020-06-08] MEDS: Acetaminophen 500 MG Tab PO PRN (09:06)
[2020-06-08] MEDS: Docusate Sodium 100 MG Cap PO PRN (09:06)
[2020-06-08 14:30] LABS: BLOOD UREA NITROGEN,BUN 6 mg/dL (7.0-18.0); CARBON DIOXIDE,CO2 24.2 mmol/L (21.0-32.0); CHLORIDE,CL 107 mmol/L (98-107); GLUCOSE RANDOM 82 mg/dL (74-106); POTASSIUM,K 4.5 mmol/L (3.5-5.1); SODIUM,NA 139 mmol/L (136-145)
[2020-06-08] MEDS: Ferrous Sulfate 325 MG Tab PO SCH (17:12)
--- NOTE | 2020-06-09 07:30 | PCM.PNPP ---
- General Info Date of Service: 06/09/20 Subjective Update: Patient resting comfortably in bed, no new concerns overnight. Ambulating and voiding without difficulty. Tolerating regular diet. Denies preeclampsia symptoms. No fever overnight. Bottlefeeding babies at this time, plans to start pumping upon discharge. - General Info Date of Service: 06/09/20 - Patient Data Vital Signs - Most Recent: Last Vital Signs Temp 96.9 F 06/09/20 04:30 Pulse 74 06/09/20 04:30 Resp 16 06/09/20 04:30 BP 140/89 06/09/20 04:30 Pulse Ox 98 06/09/20 04:30 Weight - Most Recent: 181 lb Lab Results - Last 24 Hours: Laboratory Results - last 24 hr 06/06/20 06/08/20 06/08/20 Range/Units 05:55 13:36 13:36 WBC 12.89 H (4.0-11.0) K/uL RBC 2.71 L (4.30-5.90) M/uL Hgb 8.2 L (12.0-16.0) g/dL Hct 24.9 L (36.0-46.0) % MCV 91.9 (80.0-98.0) fL MCH 30.3 (27.0-32.0) pg MCHC 32.9 (31.0-37.0) g/dL RDW Std Deviation 46.5 (28.0-62.0) fl RDW Coeff of Wally 14 (11.0-15.0) % Plt Count 150 (150-400) K/uL MPV 13.10 H (7.40-12.00) fL Nucleated RBC % 0.0 /100WBC Nucleated RBCs # 0 K/uL Sodium 139 (136-145) mmol/L Potassium 4.5 (3.5-5.1) mmol/L Chloride 107 (98-107) mmol/L Carbon Dioxide 24.2 (21.0-32.0) mmol/L BUN 6 L (7.0-18.0) mg/dL Creatinine 0.6 (0.6-1.0) mg/dL Est Cr Clr Drug Dosing 133.32 mL/min Estimated GFR (MDRD) > 60.0 ml/min Glucose 82 (74-106) mg/dL Uric Acid 4.3 (2.6-7.2) mg/dL Calcium 8.0 L (8.5-10.1) mg/dL Total Bilirubin 0.4 (0.2-1.0) mg/dL AST 26 (15-37) IU/L ALT 11 L (14-63) IU/L Alkaline Phosphatase 122 H (46-116) U/L Total Protein 5.0 L (6.4-8.2) g/dL Albumin 1.8 L (3.4-5.0) g/dL Globulin 3.2 (2.6-4.0) g/dL Albumin/Globulin Ratio 0.6 L (0.9-1.6) RPR Non-Reac (Non-Reac) Med Orders - Current: Current Medications Acetaminophen (Tylenol Extra Strength) 1,000 mg PO Q6H PRN PRN Reason: Pain Last Admin: 06/08/20 09:06 Dose: 1,000 mg Documented by: Benzocaine/Menthol (Dermoplast Pain Relief 20%-0.5% [place]) 78 gm TOP ASDIRECTED PRN PRN Reason: Perineal Comfort Measure Last Admin: 06/07/20 00:36 Dose: 1 canister Documented by: Bisacodyl (Dulcolax) 10 mg RECTAL ONETIME PRN PRN Reason: Constipation Butorphanol Tartrate (Stadol) 1 mg IVPUSH Q1H PRN PRN Reason: Pain Carboprost Tromethamine (Hemabate Ds) 250 mcg IM ASDIRECTED PRN PRN Reason: Post Hemorrhage Docusate Sodium (Colace) 100 mg PO BID PRN PRN Reason: Constipation Last Admin: 06/08/20 09:06 Dose: 100 mg Documented by: Emollient Ointment (Lansinoh Hpa) 0 gm TOP ASDIRECTED PRN PRN Reason: Sore Nipples Ferrous Sulfate (Ferrous Sulfate) 325 mg PO BIDMEALS [facility] Last Admin: 06/08/20 17:12 Dose: 325 mg Documented by: Oxytocin/Sodium Chloride (Oxytocin 30 Unit/500 Ml-Ns) 30 unit in 500 mls @ 500 mls/hr IV TITRATE [facility] Last Admin: 06/06/20 23:14 Dose: 250 mls/hr Documented by: Tranexamic Acid 1,000 mg/ (Sodium Chloride) 110 mls @ 660 mls/hr IV ONETIME PRN PRN Reason: Bleeding Oxytocin/Sodium Chloride (Oxytocin 30 Unit/500 Ml-Ns) 30 unit in 500 mls @ 2 mls/hr IV TITRATE SUSHIL; Protocol Last Titration: 06/06/20 21:57 Dose: 500 munits/min, 500 mls/hr Documented by: Lactated Ringer's (Ringers, Lactated) 1,000 mls @ 150 mls/hr IV ASDIRECTED SUSHIL Last Admin: 06/06/20 16:50 Dose: 999 mls/hr Documented by: Ibuprofen (Motrin) 800 mg PO Q8H PRN PRN Reason: Pain Lidocaine HCl (Xylocaine 1%) 50 ml INJECT ONETIME PRN PRN Reason: Laceration repair Methylergonovine Maleate (Methergine) 0.2 mg IM ASDIRECTED PRN PRN Reason: Post Hemorrhage Misoprostol (Cytotec) 200 mcg PO ONETIME PRN PRN Reason: Post Hemorrhage Last Admin: 06/06/20 22:07 Dose: 200 mcg Documented by: Misoprostol (Cytotec) 25 mcg VAG ONETIME PRN PRN Reason: Cervical Ripening Last Admin: 06/06/20 08:38 Dose: 25 mcg Documented by: Misoprostol (Cytotec) 25 mcg VAG Q4H PRN PRN Reason: Cervical Ripening Nalbuphine HCl (Nubain) 10 mg IVPUSH Q1H PRN PRN Reason: Pain (severe 7-10) Oxycodone HCl (Oxycodone) 5 mg PO Q2H PRN PRN Reason: Pain Sodium Chloride (Saline Flush) 10 ml FLUSH ASDIRECTED PRN PRN Reason: Keep Vein Open Sodium Chloride (Saline Flush) 2.5 ml FLUSH ASDIRECTED PRN PRN Reason: Keep Vein Open Sodium Chloride (Normal Saline) 10 ml IV ASDIRECTED PRN PRN Reason: IV Use Sterile Water (Sterile Water For Irrigation) 1,000 ml IRR ASDIRECTED PRN PRN Reason: delivery Terbutaline Sulfate (Brethine) 0.25 mg SUBCUT ASDIRECTED PRN PRN Reason: Tacysystole Witch Edie (Tucks) 1 pad TOP ASDIRECTED PRN PRN Reason: comfort care Last Admin: 06/07/20 00:35 Dose: 1 tub Documented by: Discontinued Medications Bupivacaine HCl (Marcaine 0.5%) Confirm Administered Dose 30 ml .ROUTE .STK-MED ONE Stop: 06/06/20 20:04 Last Admin: 06/08/20 10:40 Dose: Not Given Documented by: Ephedrine Sulfate (Ephedrine Sulfate) Confirm Administered Dose 100 mg .ROUTE .STK-MED ONE Stop: 06/06/20 17:06 Fentanyl (Sublimaze) Confirm Administered Dose 100 mcg .ROUTE .STK-MED ONE Stop: 06/06/20 16:37 Last Admin: 06/08/20 10:40 Dose: Not Given Documented by: Fentanyl (Sublimaze) Confirm Administered Dose 100 mcg .ROUTE .STK-MED ONE Stop: 06/06/20 20:09 Ropivacaine (Naropin 0.2%) Confirm Administered Dose 100 mls @ as directed .ROUTE .STK-MED ONE Stop: 06/06/20 16:37 Last Admin: 06/08/20 10:40 Dose: Not Given Documented by: Sodium Chloride (Normal Saline) Confirm Administered Dose 20 mls @ as directed .ROUTE .STK-MED ONE Stop: 06/06/20 17:06 Misoprostol (Cytotec) Confirm Administered Dose 800 mcg .ROUTE .STK-MED ONE Stop: 06/06/20 22:06 Last Admin: 06/06/20 22:07 Dose: 800 mcg Documented by: Ropivacaine (Naropin 0.2%) Confirm Administered Dose 20 ml .ROUTE .STK-MED ONE Stop: 06/06/20 16:37 Last Admin: 06/08/20 10:40 Dose: Not Given Documented by: - Interaction Disposition, : in Room with Family Feeding: Bottle Fed Infant Support Person: Significant Other - Recovery Exam Fundal Tone: Firm Fundal Level: 1 Fingerbreadths Above Umbilicus Fundal Placement: Midline Lochia Amount: Scant Lochia Color: Rubra/Red Perineum Description: Other (see below) Other Perinuem Description: right periurethral and left vaginal tear. Episiotomy/Laceration: Approximated Bladder Status: Voiding Urinary Elimination: Voided - Exam General: Alert, Oriented Lungs: Normal Respiratory Effort Cardiovascular: Regular Rate GI/Abdominal Exam: Soft, Non-Tender Extremities: Normal Inspection, No Pedal Edema Skin: Warm, Dry, Intact Neurological: No New Focal Deficit Psy/Mental Status: Alert, Normal Affect - Problem List Review Problem List Initiated/Reviewed/Updated: Yes - My Orders Last 24 Hours: My Active Orders 06/08/20 17:00 Ferrous Sulfate 325 mg PO BIDMEALS - Assessment Assessment:: 30yo s/p of twin gestation at 37w4d, PPD#3 - Plan Plan:: 1. Encouraged to breastfeed/pump today. 2. Continue to monitor temperature, will treat with antibiotics if fever recurs. 3. Continue to monitor BP and symptoms. BP 130-150 systolic over the last 24hrs. Patient remains asymptomatic. Will repeat vitals this morning, may initiate antihypertensive medication if indicated. Dispo: stable. Plan to discharge home today. Patient to return to [facility] next week for BP check. Reviewed precautions for discharge including fever/chills, headache, vision changes, RUQ pain, intractable nausea/vomiting, severe pain not controlled by Ibuprofen or Tylenol, heavy vaginal bleeding with soaking 1-2 pads per hour for more than one hour. Questions elicited and answered.
[2020-06-09 08:05] VITALS: BP 137/95; PULSE 75
[2020-06-09] MEDS: Docusate Sodium 100 MG Cap PO PRN (08:17)
[2020-06-09] MEDS: Ferrous Sulfate 325 MG Tab PO SCH (08:17)
== END 2020-06-09 14:40 | disposition home or self-care (01) | DRG 807 ==
LOC: MW.OBCHECK 05:32 → MW.OB 05:35 → MW.OBCHECK 06:36 → OBSVTOIN 21:07 → MW.OB 22:30
PROVIDERS: ADMIT Obstetrics & Gynecology; ATTEND Obstetrics & Gynecology
PROC: 10E0XZZ Delivery of Products of Conception, External Approach (ICD-10-PCS; principal; 2020-06-06)
PROC: 10907ZC Drainage of Amniotic Fluid, Therapeutic from Products of Conception, Via Natural or Artificial Opening (ICD-10-PCS; 2020-06-06)
PROC: 3E0P7VZ Introduction of Hormone into Female Reproductive, Via Natural or Artificial Opening (ICD-10-PCS; 2020-06-06)
PROC: 3E033VJ Introduction of Other Hormone into Peripheral Vein, Percutaneous Approach (ICD-10-PCS; 2020-06-06)
PROC: 0HQ9XZZ Repair Perineum Skin, External Approach (ICD-10-PCS; 2020-06-06)
PROC: 3E0R3BZ Introduction of Anesthetic Agent into Spinal Canal, Percutaneous Approach (ICD-10-PCS; 2020-06-06)
PROC: 00HU33Z Insertion of Infusion Device into Spinal Canal, Percutaneous Approach (ICD-10-PCS; 2020-06-06)
DX: O30.043 Twin pregnancy, dichorionic/diamniotic, third trimester (principal); Z37.2 Twins, both liveborn; O69.81X0 Labor and delivery complicated by cord around neck, without compression, not applicable or unspecified; Z3A.37 37 weeks gestation of pregnancy; O14.94 Unspecified pre-eclampsia, complicating childbirth; O70.0 First degree perineal laceration during delivery; Z20.828 Contact with and (suspected) exposure to other viral communicable diseases
CPT/HCPCS: 36415; 51702; 59200; 76815; 80053; 82570; 84156; 84550; 85014; 85018; 85027; 86592; 86850; 86900; 86901; A9270-GY; J2590; J3010; J7120; U0002